=== PATIENT | female | born 1980 | race Hispanic/Latino ===

== ENCOUNTER 2017-04-15 20:49 | Emergency (ER) | payer MEDICAID ==
[2017-04-15 21:00] VITALS: BP 103/71; PULSE 69; RESP 16; TEMP 97; O2SAT 99
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
== END 2017-04-15 22:20 | disposition left against medical advice (07) ==
LOC: H.ER 20:49
DX: T14.8 Other injury of unspecified body region (principal); V03.10XA Pedestrian on foot injured in collision with car, pick-up truck or van in traffic accident, initial encounter; Y92.410 Unspecified street and highway as the place of occurrence of the external cause

== ENCOUNTER 2018-10-17 02:17 | Emergency (ER) | payer MEDICAID ==
[2018-10-17 02:29] VITALS: RESP 18; TEMP 98.3; O2SAT 100
--- NOTE | 2018-10-17 02:49 | ED PDOC ---
- ECG O2 Sat by Pulse Oximetry: 100 Disposition - Disposition
--- NOTE | 2018-10-17 02:58 | ED PDOC ---
HPI: General Adult Time Seen by Provider: 10/17/18 02:22 Chief Complaint (Nursing): Anxiety Chief Complaint (Provider): Anxiety History Per: Patient History/Exam Limitations: no limitations Onset/Duration Of Symptoms: Unknown Additional Complaint(s): 38 y/o female presents to the ED complainig of anxiety onset prior to arrival. Patient states she normally takes klonopin daily for her anxiety but she wanted to get off the Clonapine as a it causes her to have memory loss. Patient went to a new psychiatrist who gave her 10 tabs of Xanax instead. Patient reports she took it in its entirety with no relief. Patient states that today she has felt scared and paranoid but is not certain as to why, Denies SI HI hallucinations, chest pain, or shortness of breath. Past Medical History Reviewed: Historical Data, Nursing Documentation, Vital Signs Vital Signs: Last Vital Signs Temp 98.3 F 10/17/18 02:20 Pulse 115 H 10/17/18 02:20 Resp 18 10/17/18 02:20 BP 132/89 10/17/18 02:20 Pulse Ox 100 10/17/18 02:49 - Medical History PMH: Denies: Diabetes, Hepatitis, HIV, HTN, Chronic Kidney Disease, Seizures, Sexually Transmitted Disease - Family History Family History: States: Unknown Family Hx - Immunization History Hx Tetanus Toxoid Vaccination: No Hx Influenza Vaccination: No Hx Pneumococcal Vaccination: No - Home Medications Home Medications: Ambulatory Orders Medication Instructions Recorded Celexa 40 mg PO DAILY 11/23/14 Klonopin 11/23/14 Propranolol 20 mg PO TID 11/23/14 Subutex 4 mg PO TID 11/23/14 Xanax 11/23/14 - Allergies Allergies/Adverse Reactions: Allergies Allergy/AdvReac Type Severity Reaction Status Date / Time vancomycin Allergy Mild RASH Verified 10/17/18 02:30 Review of Systems Cardiovascular: Negative for: Chest Pain Respiratory: Negative for: Shortness of Breath Psych: Positive for: Anxiety. Negative for: Psychosis, Suicidal ideation Physical Exam - Reviewed Nursing Documentation Reviewed: Yes Vital Signs Reviewed: Yes - Physical Exam Appears: Positive for: Well (appears unkempt), No Acute Distress Head Exam: Positive for: ATRAUMATIC, NORMAL INSPECTION, NORMOCEPHALIC Skin: Positive for: Normal Color, Warm, DRY Eye Exam: Positive for: EOMI, Normal appearance, PERRL ENT: Positive for: Normal ENT Inspection Neck: Positive for: Normal, Painless ROM Cardiovascular/Chest: Positive for: Regular Rate, Rhythm. Negative for: Murmur Respiratory: Positive for: Normal Breath Sounds. Negative for: Respiratory Distress Gastrointestinal/Abdominal: Positive for: Normal Exam, Soft. Negative for: Tenderness Extremity: Positive for: Normal ROM. Negative for: Pedal Edema, Deformity - ECG O2 Sat by Pulse Oximetry: 100 (RA) Pulse Ox Interpretation: Normal Medical Decision Making Medical Decision Making: Time: 02:43 Impression: Anxiety Initial Plan: Drug screen Crisis Evaluation ED urine Ativan 1 mg 02:50 Patient search on [facility] aware which indicates patient filled prescription of Xanax 0.325 mg #30 on 10/10/18 and klonopin 0.5 mg #90 on 10/11/18. Scribe Attestation: Documented by Romel Velasquez acting as a scribe for Kendrick Camargo PA-C. Provider Scribe Attestation: All medical record entries made by the Scribe were at my direction and personally dictated by me. I have reviewed the chart and agree that the record accurately reflects my personal performance of the history, physical exam, medical decision making, and the department course for this patient. I have also personally directed, reviewed, and agree with the discharge instructions and disposition. Disposition - Clinical Impression Clinical Impression: Anxiety, Cocaine use - Patient ED Disposition Is Patient to be Admitted: No - Disposition Disposition: Routine/Home Disposition Time: 03:38 Condition: IMPROVED Additional Instructions: FOLLOW UP WITH YOUR PSYCHIATRIST FOR FURTHER EVALUATION RETURN TO ED IMMEDIATELY IF SYMPTOMS WORSEN LAURA SNOWDEN, thank you for letting us take care of you today. Your provider was Bradly Farias MD and you were treated for ANXIETY ATTACK. The emergency medical care you received today was directed at your acute symptoms. If you were prescribed any medication, please fill it and take as directed. It may take several days for your symptoms to resolve. Return to the Emergency Department if your symptoms worsen, do not improve, or if you have any other problems. Please contact your doctor or call one of the physicians/clinics you have been referred to that are listed on the Patient Visit Information form that is incl uded in your discharge packet. Bring any paperwork you were given at discharge with you along with any medications you are taking to your follow up visit. Our treatment cannot replace ongoing medical care by a primary care provider outside of the emergency department. Thank you for allowing the [facility] team to be part of your care today. If you had an X-Ray or CT scan: A Radiologist will review the ED reading if any change in treatment is needed we will contact you. If you had a blood, urine, or wound culture: It will take several days for the results, if any change in treatment is needed we will contact you. If you had an STI test: It will take 48 hours for the results. Please call after 1 week if you have not heard back. Instructions: Cocaine Use Disorder, Anxiety, Adult (DC) Forms: [facility] ([place])
[2018-10-17 03:26] LABS: BARBITURATES, UR NEGATIVE (NEGATIVE); BENZODIAZEPINES, UR POSITIVE (NEGATIVE); OPIATES, UR NEGATIVE (NEGATIVE); PHENCYCLIDINE, UR NEGATIVE (NEGATIVE)
[2018-10-17 05:36] VITALS: BP 110/78; PULSE 98
== END 2018-10-17 03:40 | disposition home or self-care (01) ==
LOC: H.ER 02:17
DX: F14.10 Cocaine abuse, uncomplicated (principal); F41.9 Anxiety disorder, unspecified